=== PATIENT | female | born 1965 | race Caucasian/White ===

== ENCOUNTER → 2017-12-02 | Outpatient (CLI) | payer OTHER ==
[~2017-12-02] MED LIST: CHOL20005; CLON0.5T3 PO; CYAN500T13 PO; LEVO100T PO; MAGN400T6 PO; OXYC7.5T65 PO; PRLSR20 PO; PROP1TAB PO; SENNTAB23; SERT-234 PO; SUMA100T16 PO; TRAZ150T64 PO
== END | disposition home or self-care (01) ==
LOC: C.PATHSPEC 13:30
PROVIDERS: ATTEND Dermatology
DX: C44.310 Basal cell carcinoma of skin of unspecified parts of face (principal); C44.712 Basal cell carcinoma of skin of right lower limb, including hip

== ENCOUNTER → 2018-02-16 | Outpatient (CLI) | payer OTHER | END | disposition home or self-care (01) | LOC: C.PATHSPEC 10:34 | PROVIDERS: ATTEND Plastic Surgery | DX: C44.319 Basal cell carcinoma of skin of other parts of face (principal); C44.712 Basal cell carcinoma of skin of right lower limb, including hip; L90.5 Scar conditions and fibrosis of skin ==